=== PATIENT | male | born 1955 | race Caucasian/White ===

== ENCOUNTER 2017-01-05 12:31 | Outpatient (CLI) | payer MEDICARE ==
--- NOTE | 2017-01-05 17:39 | Diagnostic Imaging Report ---
Indication: COUGH Technique: Two views of the chest Comparison: none Findings: Again demonstrated is elevation of the left hemidiaphragm. Stable area of scarring or atelectasis is seen at the left lung base. The lungs and pleural spaces otherwise clear. The heart size is normal. There is slight scalloping of the right hemidiaphragm seen on lateral view, also evident previously Impression: No acute process. Stable findings as described
== END 2017-01-05 14:31 | disposition home or self-care (01) ==
LOC: RAD 12:31
DX: R05 Cough (principal)
CPT/HCPCS: 71020